=== PATIENT | female | born 1990 | race Caucasian/White ===

== ENCOUNTER 2024-02-09 16:26 | Emergency (ER) | payer OTHER ==
[2024-02-09 17:29] LABS: Pregnancy Test - Urine (BHCG) Negative (Negative); Pregu Control Background? CLEAR/WHITE (CLR/WHITE); Pregu Control Bar Appear? YES (CONTROL BAR)
[2024-02-09 17:36] LABS: #Basophils 0.04 10x3/uL (0.0-0.2); #Eosinophils 0.09 10x3/uL (0.0-0.5); #Neutrophils 3.48 10x3/uL (1.5-8.4); %Basophils 0.7 % (0.0-2.0); %Eosinophils 1.6 % (0.0-6.0); %Lymphocytes 30.5 % (18.0-47.0); %Monocytes 5.3 % (0.0-10.0); %Neutrophils 61.7 % (40.0-75.0); Hematocrit 39.4 % (34.9-44.5); Hemoglobin 13.4 g/dL (12.0-15.5); Mean Corpuscular Hemoglobin 29.1 pg (27.0-33.0); Mean Corpuscular Volume 85.7 fL (81.6-98.3); Mean Platelet Volume 10.2 fL (7.4-10.4); Platelet Count 231 10x3/uL (150-450); RBC Distribution Width 13.2 % (11.5-14.5); White Blood Cell (WBC) Count 5.6 10x3/uL (3.5-10.5)
[2024-02-09 17:40] LABS: ALT (SGPT) 7 U/L (8-55); AST (SGOT) 12 U/L (5-34); Albumin 4.2 g/dL (3.5-5.0); Alkaline Phosphatase 78 U/L (40-110); Anion Gap 14 mmol/L (10-20); BUN (Urea Nitrogen) 12 mg/dL (7.0-18.7); Bilirubin, Total 0.4 mg/dL (0.2-1.2); Calc. Creatinine Clearance 0 mL/min (70-130); Calcium 9.3 mg/dL (7.8-10.44); Carbon Dioxide 26 mmol/L (22-29); Chloride 105 mmol/L (98-107); Estimated GFR 89; Globulin 2.9 g/dL (2.4-3.5); Glucose 93 mg/dL (70-105); Potassium 3.6 mmol/L (3.5-5.1); Protein, Total 7.1 g/dL (6.0-8.3); Sodium 141 mmol/L (136-145)
[2024-02-09 17:46] LABS: Troponin I Less than 0.010 ng/mL (< 0.028)
[2024-02-09] MEDS ORDERED: Magnesium Sulfate/D5W 1 GM/100 ML BAG ONE (17:48)
== END 2024-02-09 19:12 | disposition home or self-care (01) ==
LOC: CSHERS 16:26
DX: F41.9 Anxiety disorder, unspecified (principal); M62.838 Other muscle spasm
CPT/HCPCS: 36415; 80053; 81025; 84484; 85025; 93005; 96374; J3475

== ENCOUNTER 2024-02-13 01:10 | Emergency (ER) | payer OTHER ==
[2024-02-13] MEDS ORDERED: Metoprolol Tartrate 50 MG TAB ONE (01:36)
== END 2024-02-13 02:37 | disposition home or self-care (01) ==
LOC: CSHERS 01:10
DX: I10 Essential (primary) hypertension (principal); F41.9 Anxiety disorder, unspecified; Z79.899 Other long term (current) drug therapy
CPT/HCPCS: 93005; 99284

== ENCOUNTER 2024-02-22 15:58 | Emergency (ER) | payer OTHER ==
[2024-02-22 17:41] LABS: BHCG - Serum Negative (NEGATIVE); Pregs Control Background? CLEAR/WHITE (CLR/WHITE); Pregs Control Bar Appear? YES (CONTROL BAR)
[2024-02-22 17:45] LABS: #Basophils 0.02 10x3/uL (0.0-0.2); #Eosinophils 0.04 10x3/uL (0.0-0.5); #Monocytes 0.37 10x3/uL (0.0-1.1); #Neutrophils 4.38 10x3/uL (1.5-8.4); %Basophils 0.3 % (0.0-2.0); %Eosinophils 0.6 % (0.0-6.0); %Lymphocytes 27.2 % (18.0-47.0); %Monocytes 5.6 % (0.0-10.0); %Neutrophils 66.1 % (40.0-75.0); Hematocrit 36.9 % (34.9-44.5); Hemoglobin 12.6 g/dL (12.0-15.5); Mean Corpuscular HGB CONC 34.1 g/dL (32.0-36.0); Mean Corpuscular Hemoglobin 28.8 pg (27.0-33.0); Mean Corpuscular Volume 84.4 fL (81.6-98.3); Mean Platelet Volume 10.4 fL (7.4-10.4); Platelet Count 242 10x3/uL (150-450); RBC Distribution Width 13.1 % (11.5-14.5); Red Blood Cell (RBC) Count 4.37 10x6/uL (3.90-5.03); White Blood Cell (WBC) Count 6.6 10x3/uL (3.5-10.5)
[2024-02-22 17:46] LABS: Troponin I Less than 0.010 ng/mL (< 0.028)
[2024-02-22 18:18] LABS: ALT (SGPT) 7 U/L (8-55); AST (SGOT) 11 U/L (5-34); Albumin 3.9 g/dL (3.5-5.0); Alkaline Phosphatase 66 U/L (40-110); Anion Gap 13 mmol/L (10-20); BUN (Urea Nitrogen) 9 mg/dL (7.0-18.7); Bilirubin, Total 0.4 mg/dL (0.2-1.2); Calc. Creatinine Clearance 0 mL/min (70-130); Carbon Dioxide 21 mmol/L (22-29); Chloride 106 mmol/L (98-107); Estimated GFR 111; Globulin 2.3 g/dL (2.4-3.5); Glucose 90 mg/dL (70-105); Potassium 3.7 mmol/L (3.5-5.1); Protein, Total 6.2 g/dL (6.0-8.3); Sodium 136 mmol/L (136-145)
== END 2024-02-22 19:02 | disposition home or self-care (01) ==
LOC: CSHERS 15:58
DX: R07.9 Chest pain, unspecified (principal); I10 Essential (primary) hypertension; Z79.899 Other long term (current) drug therapy
CPT/HCPCS: 36415; 71045; 80053; 83735; 84443; 84484; 84703; 85025; 93005

== ENCOUNTER 2024-02-26 19:14 | Emergency (ER) | payer OTHER | END 2024-02-26 19:46 | disposition home or self-care (01) | LOC: CSHERS 19:14 | DX: R07.89 Other chest pain (principal); I10 Essential (primary) hypertension; Z79.899 Other long term (current) drug therapy | CPT/HCPCS: 93005 ==

== ENCOUNTER 2024-03-05 11:01 | Outpatient (CLI) | payer OTHER | END 2024-03-05 11:02 | disposition home or self-care (01) | LOC: CSHMRI 11:01 | PROVIDERS: ATTEND Family Medicine | DX: G93.0 Cerebral cysts (principal) | CPT/HCPCS: 70553; 76376 ==